=== PATIENT | female | born 1995 | race African-American/Black ===

== ENCOUNTER 2018-07-27 11:13 | Emergency (ER) | payer OTHER ==
[~2018-07-27] VITALS: Ht 176.5 cm; Wt 138.3 kg
[~2018-07-27 11:13] MED LIST: OXYC1TAB19 PO; SENN1TAB70 PO
[2018-07-27 12:18] VITALS: BP 138/79
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
== END 2018-07-27 12:34 | disposition home or self-care (01) ==
LOC: ER 11:13
DX: S16.1XXA Strain of muscle, fascia and tendon at neck level, initial encounter (principal); Z90.89 Acquired absence of other organs; V43.52XA Car driver injured in collision with other type car in traffic accident, initial encounter; Y93.89 Activity, other specified; Y92.410 Unspecified street and highway as the place of occurrence of the external cause; Y99.8 Other external cause status
CPT/HCPCS: 99281

== ENCOUNTER 2019-02-07 11:18 | Emergency (ER) | payer OTHER ==
[~2019-02-07] VITALS: Ht 175.3 cm; Wt 146.3 kg
[2019-02-07 11:41] VITALS: BP 159/92
--- NOTE | 2019-02-07 12:33 | PHYS DOC ---
Past Medical History Past Medical History: No Pertinent History Past Surgical History: Appendectomy Alcohol Use: None Drug Use: None Adult General Chief Complaint Chief Complaint: SORE THROAT HPI HPI Patient is a 23 year old AA female who presents to the emergency Department today with complaints of a sore throat since this morning. She currently rates the pain a 3 out of 10 on the pain scale, there are no alleviating or exacerbating factors. ROS Patient denies any fever, rash, runny aches, with shortness of breath, wheezing, abdominal pain, nausea, vomiting, diarrhea, or back pain. She states that she has had some ear fullness, nasal congestion, and frequent throat clearing for about the last week. All other ROS is neg unless otherwise noted in HPI. Review of Systems Review of Systems See Above Allergies Allergies Allergies Coded Allergies Type Severity Reaction Last Updated Verified No Known Drug Allergies 06/20/16 No Physical Exam Physical Exam See Above Constitutional: Well developed, well nourished, no acute distress, non-toxic appearance, obese [] HENT: Normocephalic, atraumatic, bilateral external ears normal, bilateral TMs normal, posterior pharynx cobblestone appearance without erythema, tonsils normal bilaterally, oropharynx moist, no oral exudates, nasal turbinates are mark matous and erythematous Eyes: PERRLA, EOMI, conjunctiva normal, no discharge. [] Neck: Normal range of motion, no tenderness, supple, no stridor. [] Cardiovascular:Heart rate regular rhythm, no murmur [] Lungs & Thorax: Bilateral breath sounds clear to auscultation [] Skin: Warm, dry, no erythema, no rash. [] Extremities: No cyanosis, ROM intact, Neurologic: Alert and oriented X 3, no focal deficits noted. [] Psychologic: Affect normal, judgement normal, mood normal. [] Current Patient Data Vital Signs Vital Signs Date Time Temp Pulse Resp B/P (MAP) Pulse Ox O2 Delivery O2 Flow Rate FiO2 02/07/19 11:41 98.5 102 16 159/92 (114) 100 Room Air 98.5 EKG EKG [] Radiology/Procedures Radiology/Procedures [] Course & Med Decision Making Course & Med Decision Making Pertinent Labs and Imaging studies reviewed. (See chart for details) [] Dragon Disclaimer Dragon Disclaimer This electronic medical record was generated, in whole or in part, using a voice recognition dictation system. Departure Departure Impression: Primary Impression: Allergic rhinitis with postnasal drip Additional Impression: Pharyngitis, acute Disposition: 01 HOME, SELF-CARE Condition: STABLE Referrals: NO PCP (PCP) Patient Instructions: Allergic Rhinitis Additional Instructions: Recommend OTC Flonase 2 sprays each nare once daily. Take [id number] zyrtec, claritin, or meliton daily at night. May take Tylenol or ibuprofen as needed for pain or fever. Avoid exposure to allergens, dust, and animal dander. Follow-up with your primary care doctor as needed. Problem Qualifiers Additional Impression: Pharyngitis, acute Pharyngitis/tonsillitis etiology: unspecified etiology Qualified Codes: J02.9 - Acute pharyngitis, unspecified MIN RAY [employer]OR Feb 07, 2019 12:33
== END 2019-02-07 12:38 | disposition home or self-care (01) ==
LOC: ER 11:18
DX: J30.9 Allergic rhinitis, unspecified (principal); J02.9 Acute pharyngitis, unspecified
CPT/HCPCS: 99283